=== PATIENT | female | born 1995 | race Caucasian/White ===

== ENCOUNTER → 2017-10-27 08:57 | Outpatient (CLI) | payer BC, SELFPAY ==
--- NOTE | 2017-10-27 09:02 | US_ITS ---
STUDY: THYROID ULTRASOUND REASON FOR EXAM: Female, 22 years old. Abnormal thyroid lab findings. TECHNIQUE: Ultrasound evaluation of the thyroid was performed with real-time and static more-scale imaging. COMPARISON: None. FINDINGS: RIGHT LOBE: The right lobe of the thyroid gland is enlarged and measures 6.8 cm x 2.0 cm x 1.6 cm. There is a homogeneous echotexture. There are no demonstrated solid, cystic or complex lesions. LEFT LOBE: The left lobe of the thyroid gland is enlarged and measures 5.3 cm x 2.1 cm x 1.6 cm. There is a homogeneous echotexture. There is a 3 mm x 4 mm x 2 mm cyst in the lower pole of the left lobe. ISTHMUS: The isthmus measures 4.0 mm. The regional lymph nodes are normal. US/Thyroid IMPRESSION: Enlarged thyroid more prominent on the right side. Small cyst in the left lobe. Electronically Signed: Ivan Hanson MD at 15:47 EDT Tel [phone], Service support ,
== END ==
PROVIDERS: Family Provider Family Medicine; PCP Family Medicine
DX: E01.0 Iodine-deficiency related diffuse (endemic) goiter (principal)
CPT/HCPCS: 76536

== ENCOUNTER → 2018-05-21 07:18 | Outpatient (CLI) | payer BC, SELFPAY ==
--- NOTE | 2018-05-21 07:24 | NM_ITS ---
CLINICAL: 22-year-old female with reported history of clinical hyperthyroidism. I-123 THYROID UPTAKE and SCAN COMPARISON: Thyroid ultrasound report 10/27/2017 FINDINGS: The patient was administered a 333 uCi I-123 capsule by mouth. The 4-hour I-123 radioactive iodine thyroidal uptake was calculated to be 120.9 % (normal 5 to 25 %). The 24-hour I-123 radioactive iodine thyroidal uptake was calculated to be 155.3 % (normal 5 to 40 %). The I-123 thyroid scan demonstrates homogeneous radiopharmaceutical concentration throughout both lobes of a U -shaped thyroid gland. There are no colloidal parenchymal hypofunctioning-cold nodules noted in either lobe of the thyroid gland. NM/Thyroid Uptake Single or Mult IMPRESSION: 1. ABNORMAL, ELEVATED 4- and 24-hour I-123 radioactive iodine thyroidal uptakes. 2. The I-123 thyroid scan in conjunction with the calculated iodine uptake values is consistent with the presence of diffuse toxic goiter. 3. If not previously obtained correlation with in-vitro thyroid function studies is recommended. Electronically Signed: Kevin Wilson DO at 23:21 EST Tel , Service support ,
--- OUTSIDE RECORDS SUMMARY | 2018-07-14 05:57 | XMS RPT_ITS ---
:1995 Author Organization [facility] Care Team Providers Name Role Phone GOPI FOLEY Attending Unavailable GOPI FOLEY Referring Unavailable Farooq Mims Primary Care Unavailable GOPI FOLEY Consulting Unavailable GOPI FOLEY Attending Unavailable GOPI FOLEY Referring Unavailable Prabhu, Farooq Primary Care Unavailable MIDHA, ESTELA Referring Unavailable MIDHA, ESTELA Referring Unavailable MIDHA, ESTELA Referring Unavailable MIDHA, ESTELA Referring Unavailable CHILANGO, CHICHI Referring Unavailable MIDHA, ESTELA Referring Unavailable MIDHA, ESTELA Referring Unavailable MIDHA, ESTELA Referring Unavailable PRABHU, FAROOQ Primary Care Unavailable MIDHA, ESTELA Referring Unavailable PRABHU, FAROOQ Primary Care Unavailable PROBLEMS PROBLEMS DATE TYPE CONDITION / CODE ATTENDING STATUS SOURCE 05/30/2018 Active Thyrotoxicosis, NA Active [place] unspecified without Clinic Other thyrotoxic crisis or [place] storm / Repository E05.90(ICD-10) 05/30/2018 Admitting Unknown / NA Active [place] [facility] diagnosis UNK(Unknown) [facility] Repository 05/30/2018 Unknown E05.00 - GOPI FOLEY Active [place] Thyrotoxicosis with [facility] diffuse goiter Hospital without thyrotoxic Repository crisis or storm / E05.00(ICD-10) 10/26/2017 Active Unknown / NA Active [place] UNK(Unknown) Clinic Main [place] Repository PROCEDURES PROCEDURES No Procedure Records FoundRESULTS RESULTS NM IODINE THERAPY ORAL Observed: 05/30/2018 Status: F Source: [facility] 12:37 PM HEALTH SYSTEM REPOSITORY Performed at [facility] APPROVED BY: Clyde Ha MD Procedure: Administration of I-131 therapy. Date: 05/30/2018 10:13. Indication: Hyperthyroidism. Technique: The patient has a negative menstrual history for and negative serum hCG. The patient was given an oral dose of 12 mCi sodium iodide- 131 without complications. The dose was determined and administered by Dr. Howard. No imaging was acquired. The patient was given an instruction sheet and card identifying the patient's name, dose, and date of administration. The patient is to follow-up with Dr. Howard from the Endocrinology department. IMPRESSION: Administration of 12 mCi I-131 for hyperthyroidism. PROGRESS Observed: 05/30/2018 Status: COMPLETED Source: [place] 12:35 PM [facility] OTHER CAMPUS REPOSITORY O ID: [id number] Author: Clyde Hernandez Service: (none) Author Type: (none) Type: Progress Notes Filed: 05/30/2018 12:36 PM Note Text: RADIOLOGY SERVICE PROGRESS NOTE SERVICE DATE: 05/30/2018 SERVICE TIME: 12:35 PM PATIENT IDENTITY VERIFICATION COMPLETED USING TWO (2) METHODS: Patient confirmed name and Date of verbally. PATIENT GENDER DATA: .female ALLERGIES: Reviewed and unchanged MEDICATIONS REVIEWED: Yes PATIENT RELEVANT IMPLANT DATA REVIEWED: Not Applicable CREATININE: Creatinine Date Value Ref Range Status 12/19/2017 0.60 0.51 - 0.95 mg/dL Final P.O.C.T. RESULTS: N/A May 30, [address] PERFORMED: No IV SITE: NM only - not applicable, oral or physician administered agents given to patient POST EXAM PIV STATUS: Not applicable PROCEDURE TYPE: NM Therapy: Dr. Howard discussed the risks, benefits, alternatives, and precautions of I-131 therapy with the patient, who understood and agreed to proceed with the I-131 therapy. The patient received a written set of instructions regarding the I-131 therapy. 12 mCi of I-131 was administered orally for the radioactive thyroid therapy ADMINISTRATION TIME: 1025 PATIENT DISCHARGED TO: Ambulatory patient, left [place] department area. A Diagnostic radioactive procedure has taken place, with no further precautions necessary other than routine body substance precautions. More information regarding radiation safety can be found using this link: [email or web address] SIGNATURE: Clyde Hernandez PATIENT NAME: Kadeem Brito DATE: May 30, 2018 TIME: 12:35 PM PAGER/CONTACT #: HCG,TOTAL Collected: 05/30/2018 Status: F Source: [facility] 9:40 AM HEALTH SYSTEM REPOSITORY TYPE CODE TESTS RESULT OUT OF RANGE REFERENCE UNITS LAB HCG(LOINC) mIU/mL HCG,Total < 1.0 Result Comment: Male < or = 1 Non- female 1-3 Gestational Age: 0.2-1 Week 5 - 50 1-2 Weeks 50 - 500 2-3 Weeks 100 - 5000 3-4 Weeks 500 - 13522 4-5 weeks 1000 - 83840 5-6 weeks 68770 - 100,000 6-8 weeks 99819 - 200,000 2-3 months 99638 - 100,000 Performed By: #### HCG #### [facility] [address] [place] [address] THYROID UPTAKE Observed: 05/21/2018 Status: F Source: [place] SINGLE OR MULT 7:25 AM [facility] REPOSITORY [facility] Imaging Services [address] [place] [address] Thyroid Uptake Single or Mult MR#: [id number] Acct: [id number] Name: KADEEM BRITO Rep #: [id number] : 1995 F 22 From: Kevin Wilson DO PCP: Farooq Mims MD Status: REG CLI Study: Thyroid Uptake Single or Mult Date of Exam: 05/21/18 Exam# [id number] Ordering Dr: ESTELA HOWARD CLINICAL: 22-year-old female with reported history of clinical hyperthyroidism. I-123 THYROID UPTAKE and SCAN COMPARISON: Thyroid ultrasound report 10/27/2017 FINDINGS: The patient was administered a 333 uCi I-123 capsule by mouth. The 4-hour I-123 radioactive iodine thyroidal uptake was calculated to be 120.9 % (normal 5 to 25 %). The 24-hour I-123 radioactive iodine thyroidal uptake was calculated to be 155.3 % (normal 5 to 40 %). The I-123 thyroid scan demonstrates homogeneous radiopharmaceutical concentration throughout both lobes of a U -shaped thyroid gland. There are no colloidal parenchymal hypofunctioning-cold nodules noted in either lobe of the thyroid gland. NM/Thyroid Uptake Single or Mult IMPRESSION: 1. ABNORMAL, ELEVATED 4- and 24-hour I-123 radioactive iodine thyroidal uptakes. 2. The I-123 thyroid scan in conjunction with the calculated iodine uptake values is consistent with the presence of diffuse toxic goiter. 3. If not previously obtained correlation with in-vitro thyroid function studies is recommended. Electronically Signed: Kevin Wilson DO at 23:21 EST Tel , Service support , CC: Farooq Mims MD; ESTELA HOWARD Personnel Research Scientist: Signed FREE THYROXINE Collected: 05/08/2018 Status: F Source: [facility] 3:00 PM HEALTH SYSTEM REPOSITORY TYPE CODE TESTS RESULT OUT OF REFERENCE UNITS RANGE LAB FT4(LOINC) 0.76-1.46 ng/dL Low Free Thyroxine 0.54 Performed By: #### FT4 #### [place] [address] FREE T3 Collected: 05/08/2018 Status: F Source: [facility] 3:00 PM HEALTH SYSTEM REPOSITORY TYPE CODE TESTS RESULT OUT OF RANGE REFERENCE UNITS LAB FT3A(LOINC) 2.2-4.0 pg/ml Free T3 2.8 Performed By: #### FT3A #### [place] [address] TSH, 3RD GENERATION Collected: 05/08/2018 Status: F Source: [facility] 3:00 PM HEALTH SYSTEM REPOSITORY TYPE CODE TESTS RESULT OUT OF REFERENCE UNITS RANGE LAB TSH3(LOINC 0.358-3.740 uIU/mL ) TSH, 3rd High generation 6.640 Performed By: #### TSH3 #### [place] [address] HEMOGRAM/DIFF Collected: 12/19/2017 Status: F Source: [facility] 11:20 AM HEALTH SYSTEM REPOSITORY TYPE CODE TESTS RESULT OUT OF REFERENCE UNITS RANGE LAB WBC(LOINC) 3.98-10.04 thou/cmm WBC 7.91 LAB RBC(LOINC) 3.93-5.22 mil/cmm RBC 4.75 LAB HGB(LOINC) 11.2-15.7 g/dL Hgb 13.9 LAB HCT(LOINC) 34.1-44.9 % Hct 42.1 LAB MCV(LOINC) 79.4-94.8 fl MCV 88.6 LAB MCH(LOINC) 25.6-32.2 pg MCH 29.3 LAB MCHC(LOINC 31.6-34.8 % ) MCHC 33.0 LAB RDW(LOINC) 11.7-14.4 % RDW 13.5 LAB RDWSD(LOIN 36.4-46.3 fl C) RDW SD 43.8 LAB PLT(LOINC) 182-369 thou/cmm Platelet 204 LAB MPV(LOINC) 9.4-12.3 fl MPV High 12.4 LAB SEG(LOINC) % Seg Neutrophil 46.8 LAB IGRE(LOINC % ) Immature Grans 0.30 LAB LYMPH(LOIN % C) Lymphocyte 34.4 LAB MNO(LOINC) % Monocyte 15.4 LAB EOSIN(LOIN % C) Eosinophil 2.3 LAB BASO(LOINC % ) Basophil 0.8 LAB SEGN(LOINC 1.56-6.13 thou/cmm ) Abs. Neut (ANC) 3.70 LAB IGAB(LOINC 0.00-0.05 thou/cmm ) Abs Immature Grans 0.02 LAB LYMN(LOINC 1.18-3.74 thou/cmm ) Abs. Lymph 2.72 LAB MONON(LOIN 0.27-0.70 thou/cmm C) Abs. High Gray 1.22 LAB EOSN(LOINC 0.00-0.31 thou/cmm ) Abs. Eosin 0.18 LAB BASON(LOIN 0.01-0.08 thou/cmm C) Abs. Baso 0.06 Result Comment: Smear scanned; tech agrees with automated differential Performed By: #### CBCD1 #### [address] [address] COMPREHENSIVE PANEL Collected: 12/19/2017 Status: F Source: [facility] 11:20 AM HEALTH SYSTEM REPOSITORY TYPE CODE TESTS RESULT OUT OF REFERENCE UNITS RANGE LAB NA(LOINC) 136-145 mEq/L Sodium Blood 140 LAB K(LOINC) 3.5-5.1 mEq/L Potassium Blood 4.1 LAB CL(LOINC) 98-107 mEq/L Chloride Blood 107 LAB CO2(LOINC) 21-32 mEq/L CO2 Blood 27 LAB GLU(LOINC) 70-99 mg/dL Glucose Blood 81 LAB BUN(LOINC) 7-18 mg/dL Low BUN Blood 6 LAB CREA(LOINC 0.51-0.95 mg/dL ) Creatinine Blood 0.60 LAB CA(LOINC) 8.5-10.1 mg/dL Calcium Blood 8.7 LAB ALB(LOINC) 3.4-5.0 g/dL Albumin Blood 4.0 LAB TP(LOINC) 6.4-8.2 g/dL Total Protein 7.2 LAB AST(LOINC) 9-37 U/L AST-SGOT Blood 16 LAB ALT(LOINC) 12-78 U/L ALT-SGPT Blood 22 LAB ALKP(LOINC 46-116 U/L ) Alk High Phosphatase 122 LAB BILIT(LOIN 0.2-1.0 mg/dL C) Total Bilirubin 0.5 LAB ANGAP(LOIN 8-16 C) Anion Gap 10 Performed By: #### P14 #### [place] [address] FREE THYROXINE Collected: 12/19/2017 Status: F Source: [facility] 11:20 [facility] SYSTEM REPOSITORY TYPE CODE TESTS RESULT OUT OF REFERENCE UNITS RANGE LAB FT4(LOINC) 0.76-1.46 ng/dL Free Thyroxine 0.94 Performed By: #### FT4 #### [place] [address] MDRD GFR Collected: 12/19/2017 Status: F Source: [facility] 11:20 AM HEALTH SYSTEM REPOSITORY TYPE CODE TESTS RESULT OUT OF RANGE REFERENCE UNITS LAB GFRFN(LOINC >60mL/min/1.73m ) 2 eGFR >60 Result Comment: If the patient is , multiply the result by 1.210. Performed By: #### GFR #### [place] [address] FREE T3 Collected: 12/19/2017 Status: F Source: [facility] 11:20 AM HEALTH SYSTEM REPOSITORY TYPE CODE TESTS RESULT OUT OF RANGE REFERENCE UNITS LAB FT3A(LOINC) 2.2-4.0 pg/ml Free T3 3.2 Performed By: #### FT3A #### [facility] [address] [place], [place] [address] TSH, 3RD GENERATION Collected: 12/19/2017 Status: F Source: [facility] 11:20 AM HEALTH SYSTEM REPOSITORY TYPE CODE TESTS RESULT OUT OF REFERENCE UNITS RANGE LAB TSH3(LOINC 0.358-3.740 uIU/mL ) Low TSH, 3rd generation 0.006 Performed By: #### TSH3 #### [facility] [address] [place], [place] [address] TSH RECEPTOR ANTIBODY Collected: 12/19/2017 Status: F Source: [facility] 11:20 AM [facility] SYSTEM REPOSITORY TYPE CODE TESTS RESULT OUT OF REFERENCE UNITS RANGE LAB TRABX(LOINC ) TSH Receptor SEE BELOW Antibody Result Comment: TSI 3598 H <150 % Normal TBI 5.2 H <1.0 U/L This test was developed and its performance characteristics determined by [facility]'s [facility] Path[facility] Laboratory Medicine [place] (-[facility]). It has not been cleared or approved by the FDA. [facility] is regulated under CLIA as qualified to perform high-complexity testing. This test is used for clinical purposes. It should not be regarded as investigational or for research. Performing Laboratory: [facility] [address] [place] [address] Performed By: #### TRABX #### [address] [address] THYROID Observed: 10/27/2017 Status: F Source: [place] 9:02 AM [facility] REPOSITORY [facility] Imaging Services [address] [place] [address] Thyroid MR#: [id number] Acct: [id number] Name: KADEEM BRITO Rep #: [id number] : 1995 F 22 From: Ivan Hanson MD PCP: Farooq Mims MD Status: REG CLI Study: Thyroid Date of Exam: 10/27/17 Exam# [id number] Ordering Dr: CHICHI KEE STUDY: THYROID ULTRASOUND REASON FOR EXAM: Female, 22 years old. Abnormal thyroid lab findings. TECHNIQUE: Ultrasound evaluation of the thyroid was performed with real-time and static more-scale imaging. COMPARISON: None. FINDINGS: RIGHT LOBE: The right lobe of the thyroid gland is enlarged and measures 6.8 cm x 2.0 cm x 1.6 cm. There is a homogeneous echotexture. There are no demonstrated solid, cystic or complex lesions. LEFT LOBE: The left lobe of the thyroid gland is enlarged and measures 5.3 cm x 2.1 cm x 1.6 cm. There is a homogeneous echotexture. There is a 3 mm x 4 mm x 2 mm cyst in the lower pole of the left lobe. ISTHMUS: The isthmus measures 4.0 mm. The regional lymph nodes are normal. US/Thyroid IMPRESSION: Enlarged thyroid more prominent on the right side. Small cyst in the left lobe. Electronically Signed: Ivan Hanson MD at 15:47 EDT Tel [phone], Service support , CC: Farooq Mims MD; CHICHI KEE Personnel Research Scientist: Signed CT ORBITS W CONTRAST Observed: 10/26/2017 Status: F Source: [place] 3:48 PM [facility] REPOSITORY * * *Final Report* * * DATE OF EXAM: Oct 26 2017 3:48PM [facility] 0290 - CT ORBITS W CONTRAST / PROCEDURE REASON: ELIZA VEGA * * * * Physician Interpretation * * * * CT ORBITS W CONTRAST Clinical indication: Right exophthalmos, History of hyperthyroidism. Technique: Spiral contrast-enhanced CT acquisition of the orbits with coronal and sagittal reconstructions. CT Radiation dose: Integrated Dose-length product (DLP) for this visit = 359 mGy*cm. CT Dose Reduction Employed: No dose reduction techniques were required Contrast: IV administration of 100 ml of Omnipaque 300 Comparison: No prior imaging available for comparison. Result: The globes are normal in shape and contour with appropriately positioned lens. Minimal asymmetric proptosis of the right globe compared to the left. However, no evidence of an intraorbital mass. The preseptal and post septal intra-and extraconal fat planes are maintained bilaterally. The bilateral extraocular muscles are symmetric and normal in attenuation and morphology. No findings of extraocular muscle enlargement to suggest thyroid ophthalmopathy. The bilateral optic nerve sheath complexes are symmetric and within normal. The superior ophthalmic veins and cavernous sinuses are symmetric and within normal limits. No evidence of acute orbital fracture. No evidence of acute facial fracture elsewhere. Paranasal sinuses and visualized bilateral mastoid air cells are clear. The visualized intracranial contents demonstrate normal morphology and attenuation with normal contrast enhancement of the intracranial vasculature. No evidence of an acute intracranial process, mass, or pathologic enhancement in the visualized brain. The visualized facial soft tissues and fat planes are maintained. Impression: Unremarkable contrast-enhanced CT of the orbits without findings of an intraorbital mass or findings to suggest thyroid ophthalmopathy. Personnel Research Scientist: ROSSANA Transcribe Date/Time: Oct 26 2017 4:27P Dictated by : JOEL MARROQUIN MD This examination was interpreted and the report reviewed and electronically signed by: JOEL MARROQUIN MD on Oct 26 2017 4:34PM EST PROGRESS Observed: 10/26/2017 Status: COMPLETED Source: [place] 3:40 PM [facility] REPOSITORY O ID: [id number] Author: Carlee David Service: (none) Author Type: (none) Type: Progress Notes Filed: 10/26/2017 3:41 PM Note Text: Radiology Service Progress Note PATIENT NAME: Kadeem Brito DATE OF SERVICE: October 26, 2017 TIME: 3:40 PM PATIENT IDENTITY VERIFICATION COMPLETED USING TWO (2) METHODS: Patient confirmed name verbally and Date of . PATIENT GENDER DATA: Female. status: : No status: NO. PATIENT RELEVANT IMPLANT DATA REVIEWED: Not Applicable CONTRAST INDUCED NEPHROPATHY RISK FACTORS: Not applicable CREATININE: No results found for: CREAT, EGFROTH, EGFRAA P.O.C.T. RESULTS: POC done: Yes, See Lab Tab October 26, 2017 RADIOLOGIST NOTIFIED?: No ALLERGIES: Reviewed and unchanged CONTRAST ALLERGY: NO. PERIPHERAL IV ACCESS: Ambulatory: IV type: A peripheral IV was started in the Left antecubital site with a Angio cath: 20 gauge., Site assessment: Clean,Dry and Intact, Site disposition Discontinued RADIOLOGY DEPARTMENT: CT; Exam(s) Completed: Orbits SIGNED BY: Carlee Mojica Ct October 26, 2017 3:40 PM ALLERGIES ALLERGIES No Allergies Records FoundENCOUNTERS ENCOUNTERS ADMIT/DISCHARGE ACCOUNT NUMBER ADMITTING ENCOUNTER LOCATION SOURCE CLASS 05/30/2018 [id number] Ambulatory [facility] Repository 05/30/2018/05/30/20 [id number] Ambulatory [address] MEDICAL Repository CENTERBuildi ng:AKLB 05/30/2018 [id number] Ambulatory [facility] Repository 05/30/2018/05/30/20 [id number] Ambulatory [address] MEDICAL Repository CENTERBuildi ng:AKXRNM 05/21/2018 [id number] [facility] ding:NM Repository 05/08/2018 [id number] Ambulatory [facility] Repository 05/08/2018/05/08/20 [id number] Ambulatory [address] MEDICAL Repository CENTERBuildi ng:AKLPB 12/19/2017 [id number] Ambulatory [facility] Repository 12/19/2017/12/20/19 [id number] Ambulatory [address] MEDICAL Repository CENTERBuildi ng:AKLPB 10/27/2017 [id number] [facility] ding:OPUS Repository 10/26/2017/10/27/19 [id number] Ambulatory [address] [place] Repository PAYERS PAYERS ENCOUNTER GUARANTOR PAYER SUBSCRIBER SOURCE 05/30/2018 KADEEM BERNABE: Primary [facility] Insurance:Crystal Clear VisionB: [employer] Number: [id number] Repository [place], [place] [id number] [address]Xoi: 440) Date: [phone] (HP) 05/30/2018 KADEEM BERNABE: Primary [facility] Insurance:PlovghMONTANAGhost[employer]B: [employer] Rallyhoody Number: [id number] Repository [place], [place] [id number]: ([phone]) Date: [phone] (HP) 05/21/2018 KADEEM BRITO829 Primary MARIA E [facility] Insurance:ANTHEMPolic HOLOMUZKIDOB: [place] Number: [id number] Hospital [address]Ojh: (309) [id number] Repository [phone] (HP) Date:[id number] [address] [place] [id number]: 05/21/2018 Secondary NOT GIVENUNK [place] Insurance:SELF PAY [facility] Number: Effective Repository Date:2018-05-08 05/08/2018 KADEEM CAMEJOB: [facility]:BLUE CARD HOLOMUZKIDOB: [facility] Number: [id number] Repository [place], [place] [id number] [id number]: ([phone]) Date: [phone] (HP) 12/19/2017 KADEEM CAMEJOB: [facility] Insurance:BLUE CARD [facility] Number: [id number] Repository [place], [place] [id number] [id number]: ([phone]) Date: [phone] (HP) 10/27/2017 KADEEM BRITO829 Primary Maria E XIAO Insurance:ANTHEMPolic HolomuzkiDOB: [place] Number: [id number] Hospital [address]Zqs: ([phone]) [id number] Repository [phone] (HP) Date:[id number] [id number] [place] [address]JD: 10/27/2017 Secondary NOT GIVENUNK [place] Insurance:SELF PAY [facility] Number: Effective Repository Date:2017-10-23
== END ==
PROVIDERS: Family Provider Family Medicine; PCP Family Medicine
DX: E05.00 Thyrotoxicosis with diffuse goiter without thyrotoxic crisis or storm (principal); E04.0 Nontoxic diffuse goiter
CPT/HCPCS: 78012; A9516